=== PATIENT | female | born 1950 | race Two or more races ===

== ENCOUNTER 2023-06-09 18:00 | Inpatient (IN) | payer MEDICAID, OTHER ==
[~2023-06-09] VITALS: Ht 152.4 cm; Wt 49.8 kg
[2023-06-09] MEDS ORDERED: DEXTROSE 50% SYRINGE 50 ML IV ONE (18:51)
[2023-06-09 19:25] LABS: Basophils # (auto) 0 10 ^3/uL (0-0.2); Basophils % (auto) 0.5 % (0.0-2.0); Eosinophils # (auto) 0 10 ^3/uL (0-0.8); Eosinophils % (auto) 0.3 % (0.0-7.0); Hematocrit 39.3 % (36.0-46.0); Hemoglobin 12.6 g/dL (12.2-16.2); Lymphocytes # (auto) 0.7 10 ^3/uL (0.4-5.4); Mean Corpuscular Hemoglobin 28.8 pg (28.0-32.0); Mean Corpuscular Volume 89.8 fL (80.0-100.0); Monocytes # (auto) 0.4 10 ^3/uL (0-1.3); Monocytes % (auto) 7.9 % (0.0-12.0); Neutrophils # (auto) 4.2 10 ^3/uL (1.6-8.6); Neutrophils % (auto) 78.3 % (37.0-80.0); Nucleated Red Blood Cells % 0.1 %; Red Blood Cells 4.38 10^6/uL (4.0-5.20); Red Cell Distribution Width 15.4 % (11.8-14.3); White Blood Cell 5.3 10^3/uL (4.4-10.8)
[2023-06-09] MEDS ORDERED: DEXTROSE (50%) 50ML SYRG IV ONE ×2 (19:30→22:00)
[2023-06-09 19:41] VITALS: PULSE 73; RESP 20; O2SAT 100
[2023-06-09 20:11] LABS: Alanine Aminotransferase 36 U/L (7-40); Albumin 4.2 g/dL (3.2-4.8); Alkaline Phosphatase 97 U/L (46-116); Anion Gap 8.5 (5-15); Aspartate Aminotransferase 72 U/L (13-40); BUN/Creatinine Ratio 19.2 (10.0-20.0); Blood Urea Nitrogen 19 mg/dL (9-23); Calcium 9.1 mg/dL (8.5-10.1); Carbon Dioxide 28.5 mmol/L (20-30); Chloride 104 mmol/L (98-107); Magnesium 1.7 mg/dL (1.6-2.6); Potassium 3.6 mmol/L (3.5-5.1); Sodium 141 mmol/L (136-145)
[2023-06-09 20:12] LABS: Bilirubin, Total 0.7 mg/dL (0.2-1.0); Total Protein 6.4 g/dL (5.7-8.2)
[2023-06-09 20:14] LABS: Lactic Acid w/Reflex 2.1 mmol/L (0.4-2.0)
[2023-06-09 20:31] LABS: Glucose 35 mg/dL (74-106)
[2023-06-09] MEDS ORDERED: HYDROcodone-ACET 5/325MG TAB PO PRN (21:00)
[2023-06-09] MEDS ORDERED: DOCUSATE SOD 100 MG CAP PO PRN (21:00)
[2023-06-09] MEDS ORDERED: IBUPROFEN 600 MG TAB PO PRN (21:00)
[2023-06-09] MEDS ORDERED: DEXTROSE (50%) 50ML SYRG IV PRN (21:00)
[2023-06-09] MEDS ORDERED: ONDANSETRON HCL 4 MG/2 ML VIAL IV PRN (21:00)
[2023-06-09] MEDS ORDERED: ATORVASTATIN 20 MG TAB PO SCH (22:00)
[2023-06-09 22:08] LABS: Urine Bacteria FEW /hpf (None Seen); Urine Blood Negative /uL (Negative); Urine Clarity HAZY (Clear); Urine Color Yellow (Yellow); Urine Protein, UAD TRACE (Negative); Urine Urobilinogen Normal (Negative); Urine WBC 3 /hpf (0 - 5); Urine pH 7.5 (5.0-8.0)
[2023-06-09] MEDS ORDERED: FUROSEMIDE 40 MG/4 ML VIAL IV ONE (22:15)
[2023-06-09] MEDS: SODIUM CHLOR 0.9% PF (SALINE LOCK) 10ML VIAL/SYR IV SCH (22:39)
[2023-06-09] MEDS ORDERED: NITR-87 PO (22:44)
[2023-06-09] MEDS: CARVEDILOL 3.125 MG TAB PO SCH (22:48)
[2023-06-10] MEDS: ACCU-CHEK COMFORT CURVE STRIP VI SCH ×7 (01:01→20:28)
[2023-06-10] MEDS: InsuLIN REG 1unit/0.01ml Soln (100units/ml) SC SCH ×7 (01:07→20:39)
[2023-06-10 03:19] VITALS: PULSE 65; RESP 20; O2SAT 100
[2023-06-10] MEDS ORDERED: NITROGLYCERIN 0.4 MG SL TAB SL PRN (05:30)
[2023-06-10] MEDS ORDERED: MORPHINE SULFATE INJ 2 MG/ml SYRG IV PRN (05:30)
[2023-06-10 05:52] LABS: Basophils # (auto) 0 10 ^3/uL (0-0.2); Basophils % (auto) 0.8 % (0.0-2.0); Eosinophils # (auto) 0 10 ^3/uL (0-0.8); Eosinophils % (auto) 0.3 % (0.0-7.0); Hematocrit 35.1 % (36.0-46.0); Hemoglobin 11.4 g/dL (12.2-16.2); Lymphocytes # (auto) 1.1 10 ^3/uL (0.4-5.4); Lymphocytes % (auto) 26.1 % (10.0-50.0); Mean Corpuscular Hemoglobin 29.1 pg (28.0-32.0); Mean Corpuscular Hgb Conc. 32.6 g/dL (32.0-36.0); Mean Corpuscular Volume 89.2 fL (80.0-100.0); Monocytes # (auto) 0.5 10 ^3/uL (0-1.3); Monocytes % (auto) 12.6 % (0.0-12.0); Neutrophils # (auto) 2.6 10 ^3/uL (1.6-8.6); Neutrophils % (auto) 60.2 % (37.0-80.0); Nucleated Red Blood Cells % 0.1 %; Red Blood Cells 3.94 10^6/uL (4.0-5.20); Red Cell Distribution Width 15.2 % (11.8-14.3); White Blood Cell 4.3 10^3/uL (4.4-10.8)
[2023-06-10 05:59] LABS: Alanine Aminotransferase 24 U/L (7-40); Alkaline Phosphatase 82 U/L (46-116); Anion Gap 6.7 (5-15); BUN/Creatinine Ratio 13.1 (10.0-20.0); Blood Urea Nitrogen 14 mg/dL (9-23); Calcium 8.6 mg/dL (8.7-10.4); Carbon Dioxide 29.3 mmol/L (20-30); Chloride 103 mmol/L (98-107); Glucose 103 mg/dL (74-106); Sodium 139 mmol/L (136-145)
[2023-06-10 06:00] LABS: Albumin 3.6 g/dL (3.2-4.8); Aspartate Aminotransferase 38 U/L (13-40); Bilirubin, Total 0.8 mg/dL (0.2-1.0); Total Protein 5.6 g/dL (5.7-8.2)
[2023-06-10] MEDS: SODIUM CHLOR 0.9% PF (SALINE LOCK) 10ML VIAL/SYR IV SCH ×3 (06:25→22:17)
[2023-06-10 08:00] VITALS: PULSE 83; RESP 18; O2SAT 100
[2023-06-10] MEDS ORDERED: MAGNESIUM SULFATE 1GM/100ML 100 ML IV ONE (09:15)
[2023-06-10] MEDS ORDERED: POTASSIUM EFFERVESENT TAB 25 MEQ PO ONE (09:15)
[2023-06-10 09:50] LABS: Triglycerides 70 mg/dL (< 150)
[2023-06-10 09:51] LABS: Cholesterol 100 mg/dL (< 200); HDL Cholesterol 48 mg/dL (40-59); LDL Cholesterol 43 mg/dL (< 100)
[2023-06-10] MEDS ORDERED: FUROSEMIDE 20 MG/2 ML VIAL IV SCH (10:00)
[2023-06-10] MEDS: FAMOTIDINE (10MG/ML) 2ML VL IV SCH (10:34)
[2023-06-10] MEDS: APIXABAN 5 MG TAB PO SCH ×2 (10:35→22:21)
[2023-06-10] MEDS: ASPirin 81 mg TAB PO SCH (10:35)
[2023-06-10] MEDS: CARVEDILOL 3.125 MG TAB PO SCH ×2 (10:36→22:21)
[2023-06-10] MEDS: FUROSEMIDE 40 MG/4 ML VIAL IV SCH (18:18)
[2023-06-10 20:00] VITALS: PULSE 92; RESP 20; O2SAT 99
[2023-06-10] MEDS: ATORVASTATIN 20 MG TAB PO SCH (22:21)
[2023-06-11] MEDS: ACCU-CHEK COMFORT CURVE STRIP VI SCH ×6 (00:18→22:03)
[2023-06-11] MEDS: InsuLIN REG 1unit/0.01ml Soln (100units/ml) SC SCH ×6 (04:32→20:00)
[2023-06-11 05:24] LABS: Anion Gap 5.8 (5-15); Calcium 9.3 mg/dL (8.7-10.4); Carbon Dioxide 32.2 mmol/L (20-30); Chloride 99 mmol/L (98-107); Potassium 3.9 mmol/L (3.5-5.1); Sodium 137 mmol/L (136-145)
[2023-06-11] MEDS: SODIUM CHLOR 0.9% PF (SALINE LOCK) 10ML VIAL/SYR IV SCH ×3 (05:26→22:04)
[2023-06-11 05:29] LABS: Glucose 122 mg/dL (74-106)
[2023-06-11 05:30] LABS: BUN/Creatinine Ratio 14.8 (10.0-20.0); Blood Urea Nitrogen 18 mg/dL (9-23); Magnesium 1.9 mg/dL (1.6-2.6)
[2023-06-11 05:47] LABS: Basophils # (auto) 0 10 ^3/uL (0-0.2); Basophils % (auto) 0.6 % (0.0-2.0); Eosinophils # (auto) 0.1 10 ^3/uL (0-0.8); Hemoglobin 12.8 g/dL (12.2-16.2); Lymphocytes # (auto) 1.2 10 ^3/uL (0.4-5.4); Mean Corpuscular Hemoglobin 29.1 pg (28.0-32.0); Mean Corpuscular Hgb Conc. 32.8 g/dL (32.0-36.0); Mean Corpuscular Volume 88.6 fL (80.0-100.0); Monocytes # (auto) 0.6 10 ^3/uL (0-1.3); Monocytes % (auto) 11.9 % (0.0-12.0); Neutrophils # (auto) 3.4 10 ^3/uL (1.6-8.6); Neutrophils % (auto) 64.5 % (37.0-80.0); Nucleated Red Blood Cells % 0.2 %; Red Blood Cells 4.41 10^6/uL (4.0-5.20); Red Cell Distribution Width 15.2 % (11.8-14.3); White Blood Cell 5.2 10^3/uL (4.4-10.8)
[2023-06-11] MEDS: FUROSEMIDE 40 MG/4 ML VIAL IV SCH (06:49)
[2023-06-11 10:00] VITALS: BP 149/53; PULSE 87; RESP 20; TEMP 98.3; O2SAT 95
[2023-06-11] MEDS: cefTRIAXone 1GM/50ML D5W 50 ML IV SCH (10:34)
[2023-06-11] MEDS: FAMOTIDINE (10MG/ML) 2ML VL IV SCH (10:36)
[2023-06-11] MEDS: APIXABAN 5 MG TAB PO SCH ×2 (10:36→21:58)
[2023-06-11] MEDS: ASPirin 81 mg TAB PO SCH (10:36)
[2023-06-11] MEDS: CARVEDILOL 3.125 MG TAB PO SCH ×2 (10:36→22:00)
[2023-06-11 10:56] VITALS: PULSE 87; RESP 20; O2SAT 95
[2023-06-11 13:00] VITALS: BP 110/74; PULSE 86; RESP 20; TEMP 98.2; O2SAT 98
[2023-06-11 16:25] VITALS: BP 108/72; PULSE 85; RESP 16; TEMP 97.5; O2SAT 98
[2023-06-11 20:00] VITALS: PULSE 72; PULSE 86; RESP 16; O2SAT 98
[2023-06-11] MEDS: ATORVASTATIN 20 MG TAB PO SCH (21:58)
[2023-06-11 22:00] VITALS: BP 108/48; PULSE 72; RESP 16; TEMP 98.2; O2SAT 98
[2023-06-12] VITALS (7 sets, daily range): BP systolic 100–128; BP diastolic 51–70; PULSE 49–88; RESP 16–18; TEMP 36.6; O2SAT 97–100
[2023-06-12] MEDS: ACCU-CHEK COMFORT CURVE STRIP VI SCH ×5 (04:00→16:00)
[2023-06-12] MEDS: InsuLIN REG 1unit/0.01ml Soln (100units/ml) SC SCH ×5 (04:00→16:00)
[2023-06-12] MEDS: SODIUM CHLOR 0.9% PF (SALINE LOCK) 10ML VIAL/SYR IV SCH ×2 (05:07→14:00)
[2023-06-12 05:17] LABS: Chloride 100 mmol/L (98-107); Potassium 4.3 mmol/L (3.5-5.1); Sodium 136 mmol/L (136-145)
[2023-06-12 05:18] LABS: Anion Gap 4.7 (5-15); Calcium 9.4 mg/dL (8.7-10.4); Carbon Dioxide 31.3 mmol/L (20-30)
[2023-06-12 05:23] LABS: Glucose 95 mg/dL (74-106)
[2023-06-12 05:27] LABS: Blood Urea Nitrogen 30 mg/dL (9-23)
[2023-06-12 05:29] LABS: Basophils # (auto) 0 10 ^3/uL (0-0.2); Basophils % (auto) 0.8 % (0.0-2.0); Eosinophils # (auto) 0.1 10 ^3/uL (0-0.8); Eosinophils % (auto) 0.9 % (0.0-7.0); Hematocrit 39.1 % (36.0-46.0); Hemoglobin 12.9 g/dL (12.2-16.2); Lymphocytes # (auto) 1.4 10 ^3/uL (0.4-5.4); Lymphocytes % (auto) 23.7 % (10.0-50.0); Mean Corpuscular Hemoglobin 29.3 pg (28.0-32.0); Mean Corpuscular Hgb Conc. 32.9 g/dL (32.0-36.0); Monocytes # (auto) 0.8 10 ^3/uL (0-1.3); Monocytes % (auto) 13.9 % (0.0-12.0); Neutrophils # (auto) 3.6 10 ^3/uL (1.6-8.6); Neutrophils % (auto) 60.7 % (37.0-80.0); Nucleated Red Blood Cells % 0.1 %; Red Blood Cells 4.39 10^6/uL (4.0-5.20); White Blood Cell 5.9 10^3/uL (4.4-10.8)
[2023-06-12] MEDS: FAMOTIDINE (10MG/ML) 2ML VL IV SCH (09:12)
[2023-06-12] MEDS: cefTRIAXone 1GM/50ML D5W 50 ML IV SCH (09:43)
[2023-06-12] MEDS: ASPirin 81 mg TAB PO SCH (09:49)
[2023-06-12] MEDS: CARVEDILOL 3.125 MG TAB PO SCH (09:49)
[2023-06-12] MEDS: APIXABAN 5 MG TAB PO SCH (09:54)
[2023-06-12] MEDS ORDERED: FUROSEMIDE 40 MG TAB PO SCH (10:00)
[2023-06-12] MEDS ORDERED: CIPR250T3 PO ×3 (13:16→15:31)
== END 2023-06-12 17:30 | disposition home or self-care (01) | DRG 194 ==
LOC: EDBD 18:00 → ER 18:00 → TELE 06-10 05:28 → TELE-CENTR 06-11 09:44
PROVIDERS: ADMIT Nurse Practitioner Family; ATTEND Internal Medicine
DX: I11.0 Hypertensive heart disease with heart failure (principal); E11.649 Type 2 diabetes mellitus with hypoglycemia without coma; I95.9 Hypotension, unspecified; Z79.01 Long term (current) use of anticoagulants; I48.20 Chronic atrial fibrillation, unspecified; I50.43 Acute on chronic combined systolic (congestive) and diastolic (congestive) heart failure; N39.0 Urinary tract infection, site not specified; E78.5 Hyperlipidemia, unspecified; E87.6 Hypokalemia; Z88.0 Allergy status to penicillin; Z79.84 Long term (current) use of oral hypoglycemic drugs
CPT/HCPCS: 36415; 71045; 80048; 80053; 80061; 81001; 82962; 83036; 83605; 83735; 83880; 84443; 84484; 85025; 85379; 93005; 93306; 96374; 96375; 96376; 99291; G0378; J0696; J1815; J3490

== ENCOUNTER 2023-10-29 14:29 | Inpatient (IN) | payer MEDICAID ==
[~2023-10-29] VITALS: Ht 152.4 cm; Wt 42.5 kg
[~2023-10-29 14:29] MED LIST: CIPR250T3 PO
[2023-10-29] MEDS ORDERED: HYDROcodone-ACET 5/325MG TAB PO ONE (15:00)
[2023-10-29 15:49] LABS: Basophils # (auto) 0 10 ^3/uL (0-0.2); Basophils % (auto) 0.3 % (0.0-2.0); Eosinophils # (auto) 0 10 ^3/uL (0-0.8); Eosinophils % (auto) 0.4 % (0.0-7.0); Hematocrit 41.3 % (36.0-46.0); Hemoglobin 13.5 g/dL (12.2-16.2); Lymphocytes # (auto) 0.9 10 ^3/uL (0.4-5.4); Lymphocytes % (auto) 21.6 % (10.0-50.0); Mean Corpuscular Hemoglobin 28.8 pg (28.0-32.0); Mean Corpuscular Hgb Conc. 32.8 g/dL (32.0-36.0); Mean Corpuscular Volume 87.9 fL (80.0-100.0); Monocytes # (auto) 0.4 10 ^3/uL (0-1.3); Monocytes % (auto) 9.3 % (0.0-12.0); Neutrophils % (auto) 68.4 % (37.0-80.0); Nucleated Red Blood Cells % 0.2 %; Red Blood Cells 4.69 10^6/uL (4.0-5.20); Red Cell Distribution Width 15.5 % (11.8-14.3); White Blood Cell 4.4 10^3/uL (4.4-10.8)
[2023-10-29 16:02] LABS: Alanine Aminotransferase 24 U/L (7-40); Albumin 4.5 g/dL (3.2-4.8); Alkaline Phosphatase 117 U/L (46-116); Anion Gap 5 (5-15); Aspartate Aminotransferase 41 U/L (13-40); BUN/Creatinine Ratio 19.1 (10.0-20.0); Blood Urea Nitrogen 18 mg/dL (9-23); Calcium 9.6 mg/dL (8.7-10.4); Carbon Dioxide 28 mmol/L (20-30); Chloride 101 mmol/L (98-107); Glucose 113 mg/dL (74-106); Potassium 4.6 mmol/L (3.5-5.1); Sodium 134 mmol/L (136-145)
[2023-10-29 16:03] LABS: Bilirubin, Total 0.5 mg/dL (0.2-1.0); Total Protein 7.2 g/dL (5.7-8.2)
[2023-10-29 20:30] VITALS: PULSE 65; RESP 12; O2SAT 96
[2023-10-29] MEDS: CLINDAMYCIN 300MG IV 50 ML IV SCH (20:53)
[2023-10-29] MEDS: CARVEDILOL 12.5 MG TAB PO SCH (21:50)
[2023-10-29] MEDS: SACUBITRIL-VALSARTAN 24mg/26mg TAB PO SCH (21:50)
[2023-10-29] MEDS: ATORVASTATIN 20 MG TAB PO SCH (21:51)
[2023-10-29 23:43] VITALS: BP 115/72; PULSE 51; RESP 18; TEMP 97.7; O2SAT 100
[2023-10-30] MEDS ORDERED: PRAV20TA3 PO (00:27)
[2023-10-30] MEDS ORDERED: CAR125T OR (00:27)
[2023-10-30] MEDS ORDERED: LOSA50TA46 PO (00:27)
[2023-10-30] MEDS ORDERED: METF-370 PO (00:27)
[2023-10-30] MEDS ORDERED: GABA-1308 PO (00:27)
[2023-10-30] MEDS: CLINDAMYCIN 300MG IV 50 ML IV SCH ×2 (01:16→05:00)
[2023-10-30 05:15] VITALS: BP 99/64; PULSE 91; RESP 18; TEMP 98.2; O2SAT 96
[2023-10-30] MEDS: FUROSEMIDE 20 MG TAB PO SCH ×2 (06:00→18:47)
[2023-10-30 06:41] LABS: Basophils # (auto) 0 10 ^3/uL (0-0.2); Basophils % (auto) 0.3 % (0.0-2.0); Eosinophils # (auto) 0 10 ^3/uL (0-0.8); Eosinophils % (auto) 1.1 % (0.0-7.0); Hematocrit 39.8 % (36.0-46.0); Lymphocytes % (auto) 32.1 % (10.0-50.0); Mean Corpuscular Hemoglobin 28.5 pg (28.0-32.0); Mean Corpuscular Hgb Conc. 32.6 g/dL (32.0-36.0); Mean Corpuscular Volume 87.6 fL (80.0-100.0); Monocytes # (auto) 0.4 10 ^3/uL (0-1.3); Monocytes % (auto) 13.9 % (0.0-12.0); Neutrophils # (auto) 1.6 10 ^3/uL (1.6-8.6); Neutrophils % (auto) 52.6 % (37.0-80.0); Nucleated Red Blood Cells % 0.3 %; Red Blood Cells 4.54 10^6/uL (4.0-5.20); Red Cell Distribution Width 15.1 % (11.8-14.3); White Blood Cell 3.1 10^3/uL (4.4-10.8)
[2023-10-30 07:09] LABS: Alanine Aminotransferase 18 U/L (7-40); Albumin 3.7 g/dL (3.2-4.8); Alkaline Phosphatase 98 U/L (46-116); Anion Gap 7 (5-15); Aspartate Aminotransferase 35 U/L (13-40); BUN/Creatinine Ratio 14.4 (10.0-20.0); Bilirubin, Total 0.4 mg/dL (0.2-1.0); Blood Urea Nitrogen 14 mg/dL (9-23); Calcium 9.2 mg/dL (8.5-10.1); Carbon Dioxide 25 mmol/L (20-30); Chloride 103 mmol/L (98-107); Cholesterol 119 mg/dL (< 200); Glucose 88 mg/dL (74-106); HDL Cholesterol 37 mg/dL (40-59); LDL Cholesterol 69 mg/dL (< 100); Potassium 3.8 mmol/L (3.5-5.1); Sodium 135 mmol/L (136-145); Total Protein 6.2 g/dL (5.7-8.2); Triglycerides 89 mg/dL (< 150)
[2023-10-30] MEDS: SACUBITRIL-VALSARTAN 24mg/26mg TAB PO SCH ×2 (09:33→21:32)
[2023-10-30] MEDS: EMPAGLIFLOZIN 10 MG TAB PO SCH (09:33)
[2023-10-30] MEDS: CARVEDILOL 12.5 MG TAB PO SCH ×2 (09:34→21:33)
[2023-10-30] MEDS ORDERED: LISINOPRIL 10 MG TAB PO SCH (10:00)
[2023-10-30 10:54] VITALS: BP 108/62; PULSE 54; RESP 15; TEMP 97.9; O2SAT 100
[2023-10-30] MEDS ORDERED: VANCOMYCIN PER PHARMACY 0 MG IV SCH (11:00)
[2023-10-30] MEDS ORDERED: levoFLOXacin 500MG 100 ML IV ONE (11:00)
[2023-10-30] MEDS ORDERED: VANCOMYCIN 1GM/200ML 200 ML IV ONE ×2 (11:00→14:45)
[2023-10-30] MEDS ORDERED: cefTRIAXone 1GM/50ML D5W 50 ML IV SCH ×2 (12:23→14:00)
[2023-10-30] MEDS: cefTRIAXone 1GM/50ML D5W 50 ML IV SCH (14:00)
[2023-10-30 17:17] VITALS: BP 111/43; PULSE 77; RESP 17; TEMP 98.4; O2SAT 100
[2023-10-30 18:58] LABS: Chloride 102 mmol/L (98-107); Potassium 4.6 mmol/L (3.5-5.1); Sodium 136 mmol/L (136-145)
[2023-10-30 18:59] LABS: Anion Gap 7 (5-15); Calcium 9.4 mg/dL (8.5-10.1); Carbon Dioxide 27 mmol/L (20-30)
[2023-10-30 19:04] LABS: BUN/Creatinine Ratio 22.9 (10.0-20.0); Blood Urea Nitrogen 24 mg/dL (9-23); Glucose 109 mg/dL (74-106)
[2023-10-30] MEDS: ATORVASTATIN 20 MG TAB PO SCH (21:29)
[2023-10-30 22:00] VITALS: BP 101/55; PULSE 74; RESP 20; TEMP 98.5; O2SAT 100
[2023-10-31 05:00] VITALS: BP_SYST 104; BP_SYST 99; BP_DIAS 55; BP_DIAS 76; PULSE 68; PULSE 99; RESP 20; TEMP 97.8; TEMP 98.2; O2SAT 97; O2SAT 99
[2023-10-31] MEDS: FUROSEMIDE 20 MG TAB PO SCH ×2 (07:00→18:00)
[2023-10-31 08:55] VITALS: BP 97/63; PULSE 64; RESP 18; TEMP 97.6; O2SAT 100
[2023-10-31 08:57] LABS: Hepatitis B Surface Antigen Negative (Negative)
[2023-10-31 09:19] LABS: Hepatitis C Antibody Negative (Negative)
[2023-10-31] MEDS ORDERED: levoFLOXacin 500MG 100 ML IV SCH (10:00)
[2023-10-31 10:47] LABS: INR 1.1 (0.9-1.15); Partial Thromboplastin Time 30.8 SEC (24.5-34.5); Prothrombin Time 11.5 sec (9.3-11.8)
[2023-10-31] MEDS: cefTRIAXone 1GM/50ML D5W 50 ML IV SCH (10:56)
[2023-10-31] MEDS: CARVEDILOL 12.5 MG TAB PO SCH ×2 (12:15→22:00)
[2023-10-31] MEDS: SACUBITRIL-VALSARTAN 24mg/26mg TAB PO SCH ×2 (12:15→22:00)
[2023-10-31] MEDS: EMPAGLIFLOZIN 10 MG TAB PO SCH (12:19)
[2023-10-31 12:55] VITALS: BP 97/56; PULSE 72; RESP 16; TEMP 97.8; O2SAT 100
[2023-10-31] MEDS ORDERED: VANCOMYCIN 750mg/150ml 250 ML IV SCH (16:00)
[2023-10-31 16:40] VITALS: BP 89/54; PULSE 63; RESP 16; TEMP 97.5; O2SAT 99
[2023-10-31] MEDS: VANCOMYCIN 750mg/150ml 150 ML IV SCH (18:26)
[2023-10-31 20:30] VITALS: PULSE 74; RESP 16; O2SAT 100
[2023-10-31 22:00] VITALS: BP 105/53; PULSE 74; RESP 16; TEMP 98.2; O2SAT 100
[2023-10-31] MEDS: ATORVASTATIN 20 MG TAB PO SCH (22:00)
[2023-11-01] VITALS (7 sets, daily range): BP systolic 89–98; BP diastolic 44–47; PULSE 53–76; RESP 15–18; TEMP 97.5–98.1; O2SAT 98–100
[2023-11-01] MEDS: FUROSEMIDE 20 MG TAB PO SCH (05:54)
[2023-11-01] MEDS: EMPAGLIFLOZIN 10 MG TAB PO SCH (09:54)
[2023-11-01] MEDS: SACUBITRIL-VALSARTAN 24mg/26mg TAB PO SCH ×2 (09:54→21:29)
[2023-11-01] MEDS: CARVEDILOL 12.5 MG TAB PO SCH ×2 (09:55→21:29)
[2023-11-01] MEDS: cefTRIAXone 1GM/50ML D5W 50 ML IV SCH (09:55)
[2023-11-01] MEDS ORDERED: ACETAMINOPHEN 325 MG TAB PO PRN (14:00)
[2023-11-01] MEDS ORDERED: PANTOPRAZOLE 40 MG TAB PO ONE (14:00)
[2023-11-01] MEDS ORDERED: HYDROcodone-ACET 5/325MG TAB PO PRN (14:00)
[2023-11-01] MEDS ORDERED: ONDANSETRON HCL 4 MG/2 ML VIAL IV PRN (14:00)
[2023-11-01] MEDS ORDERED: DEXTROSE (50%) 50ML SYRG IV PRN (14:00)
[2023-11-01] MEDS: VANCOMYCIN 750mg/150ml 150 ML IV SCH (15:39)
[2023-11-01] MEDS ORDERED: LIDOCAINE 1% (LOCAL ANESTH.) PF 5ml SDV ID ONE (16:45)
[2023-11-01] MEDS: InsuLIN REG 1unit/0.01ml Soln (100units/ml) SC SCH ×2 (17:00→21:28)
[2023-11-01] MEDS: ACCU-CHEK COMFORT CURVE STRIP VI SCH ×2 (17:22→21:29)
[2023-11-01] MEDS: SODIUM CHLOR 0.9% PF (SALINE LOCK) 10ML VIAL/SYR IV SCH (21:23)
[2023-11-01] MEDS: ATORVASTATIN 20 MG TAB PO SCH (21:28)
[2023-11-02 05:00] VITALS: BP 95/58; PULSE 67; RESP 15; TEMP 97.8; O2SAT 100
[2023-11-02] MEDS: ACCU-CHEK COMFORT CURVE STRIP VI SCH ×4 (06:23→21:20)
[2023-11-02] MEDS: InsuLIN REG 1unit/0.01ml Soln (100units/ml) SC SCH ×4 (06:23→21:26)
[2023-11-02 08:00] VITALS: PULSE 74; RESP 18; O2SAT 98
[2023-11-02 09:00] VITALS: BP_SYST 109; BP_SYST 88; BP_DIAS 35; BP_DIAS 59; PULSE 61; PULSE 72; RESP 18; TEMP 97.8; TEMP 98; O2SAT 98; O2SAT 99
[2023-11-02] MEDS: SACUBITRIL-VALSARTAN 24mg/26mg TAB PO SCH ×2 (09:06→21:20)
[2023-11-02] MEDS: PANTOPRAZOLE 40 MG TAB PO SCH (09:06)
[2023-11-02] MEDS: EMPAGLIFLOZIN 10 MG TAB PO SCH (09:07)
[2023-11-02] MEDS: FUROSEMIDE 20 MG TAB PO SCH (09:07)
[2023-11-02] MEDS: CARVEDILOL 12.5 MG TAB PO SCH ×2 (09:08→21:27)
[2023-11-02] MEDS: SODIUM CHLOR 0.9% PF (SALINE LOCK) 10ML VIAL/SYR IV SCH ×2 (09:09→21:29)
[2023-11-02] MEDS: cefTRIAXone 1GM/50ML D5W 50 ML IV SCH (09:09)
[2023-11-02 13:00] VITALS: BP 88/35; PULSE 61; RESP 18; TEMP 98; O2SAT 99
[2023-11-02] MEDS ORDERED: ENOXAPARIN SOD 40 MG/0.4 ML SYRINGE SC ONE (15:45)
[2023-11-02 17:13] VITALS: BP 133/85; PULSE 115; RESP 18; TEMP 98.3; O2SAT 93
[2023-11-02] MEDS: VANCOMYCIN 750mg/150ml 150 ML IV SCH (17:50)
[2023-11-02] MEDS: ATORVASTATIN 20 MG TAB PO SCH (21:20)
[2023-11-02 22:00] VITALS: BP 100/39; PULSE 68; RESP 18; TEMP 98; O2SAT 100
[2023-11-03 05:00] VITALS: BP 93/38; PULSE 51; RESP 18; TEMP 97.6; O2SAT 99
[2023-11-03] MEDS ORDERED: ENOXAPARIN SOD 40 MG/0.4 ML SYRINGE SC SCH (06:00)
[2023-11-03] MEDS: InsuLIN REG 1unit/0.01ml Soln (100units/ml) SC SCH ×4 (06:48→22:01)
[2023-11-03] MEDS: ACCU-CHEK COMFORT CURVE STRIP VI SCH ×4 (06:48→21:53)
[2023-11-03 08:00] VITALS: BP 98/64; PULSE 63; RESP 16; TEMP 97.7; O2SAT 100
[2023-11-03 08:10] VITALS: BP 98/64; PULSE 63; RESP 16; TEMP 97.7; O2SAT 100
[2023-11-03] MEDS: FUROSEMIDE 20 MG TAB PO SCH (10:00)
[2023-11-03] MEDS: SACUBITRIL-VALSARTAN 24mg/26mg TAB PO SCH ×2 (10:00→21:53)
[2023-11-03] MEDS: SODIUM CHLOR 0.9% PF (SALINE LOCK) 10ML VIAL/SYR IV SCH ×2 (10:12→21:57)
[2023-11-03] MEDS: cefTRIAXone 1GM/50ML D5W 50 ML IV SCH (10:12)
[2023-11-03] MEDS: EMPAGLIFLOZIN 10 MG TAB PO SCH (10:15)
[2023-11-03] MEDS: PANTOPRAZOLE 40 MG TAB PO SCH (10:15)
[2023-11-03 12:00] VITALS: BP 99/55; PULSE 65; RESP 16; TEMP 97.4; O2SAT 95
[2023-11-03 16:00] VITALS: BP 105/53; PULSE 52; RESP 16; TEMP 97.8; O2SAT 100
[2023-11-03] MEDS: APIXABAN 5 MG TAB PO SCH (21:53)
[2023-11-03] MEDS: ATORVASTATIN 20 MG TAB PO SCH (21:53)
[2023-11-03] MEDS: CARVEDILOL 3.125 MG TAB PO SCH (21:56)
[2023-11-03 22:00] VITALS: BP 95/60; PULSE 67; RESP 16; TEMP 98.1; O2SAT 97
[2023-11-04 05:00] VITALS: BP 109/53; PULSE 58; RESP 16; TEMP 97.6; O2SAT 100
[2023-11-04] MEDS: ACCU-CHEK COMFORT CURVE STRIP VI SCH ×3 (06:08→16:55)
[2023-11-04] MEDS: InsuLIN REG 1unit/0.01ml Soln (100units/ml) SC SCH ×3 (06:08→17:32)
[2023-11-04 06:55] LABS: Basophils # (auto) 0 10 ^3/uL (0-0.2); Basophils % (auto) 0.5 % (0.0-2.0); Eosinophils # (auto) 0 10 ^3/uL (0-0.8); Eosinophils % (auto) 1.2 % (0.0-7.0); Hematocrit 41.2 % (36.0-46.0); Hemoglobin 13.6 g/dL (12.2-16.2); Lymphocytes # (auto) 1.1 10 ^3/uL (0.4-5.4); Lymphocytes % (auto) 31.1 % (10.0-50.0); Mean Corpuscular Hemoglobin 29.1 pg (28.0-32.0); Mean Corpuscular Hgb Conc. 33.1 g/dL (32.0-36.0); Mean Corpuscular Volume 87.7 fL (80.0-100.0); Monocytes # (auto) 0.4 10 ^3/uL (0-1.3); Monocytes % (auto) 12.7 % (0.0-12.0); Neutrophils # (auto) 1.9 10 ^3/uL (1.6-8.6); Neutrophils % (auto) 54.5 % (37.0-80.0); Nucleated Red Blood Cells % 0.1 %; Red Cell Distribution Width 15.4 % (11.8-14.3); White Blood Cell 3.5 10^3/uL (4.4-10.8)
[2023-11-04 07:01] LABS: Anion Gap 6 (5-15); Carbon Dioxide 27 mmol/L (20-30); Chloride 103 mmol/L (98-107); Sodium 136 mmol/L (136-145)
[2023-11-04 07:02] LABS: Calcium 9.2 mg/dL (8.5-10.1)
[2023-11-04 07:07] LABS: Blood Urea Nitrogen 21 mg/dL (9-23); Glucose 85 mg/dL (74-106)
[2023-11-04 08:00] VITALS: BP 97/58; PULSE 76; RESP 16; TEMP 97.5; O2SAT 100
[2023-11-04 08:08] LABS: BUN/Creatinine Ratio 23.3 (10.0-20.0)
[2023-11-04] MEDS: APIXABAN 5 MG TAB PO SCH (09:14)
[2023-11-04] MEDS: cefTRIAXone 1GM/50ML D5W 50 ML IV SCH (09:14)
[2023-11-04] MEDS: PANTOPRAZOLE 40 MG TAB PO SCH (09:14)
[2023-11-04] MEDS: SACUBITRIL-VALSARTAN 24mg/26mg TAB PO SCH (09:14)
[2023-11-04] MEDS: CARVEDILOL 3.125 MG TAB PO SCH (09:15)
[2023-11-04] MEDS: EMPAGLIFLOZIN 10 MG TAB PO SCH (09:15)
[2023-11-04] MEDS: SODIUM CHLOR 0.9% PF (SALINE LOCK) 10ML VIAL/SYR IV SCH (09:15)
[2023-11-04] MEDS ORDERED: EMPA1TAB PO (09:48)
[2023-11-04] MEDS ORDERED: SACU1TAB PO (09:48)
[2023-11-04] MEDS ORDERED: APIX5TAB PO (09:48)
[2023-11-04] MEDS ORDERED: FUR20T PO (09:48)
[2023-11-04] MEDS ORDERED: DAKINS QUARTER STR 0.125% (NaHypochlorite) 473 ML TOPICAL SOL TOP SCH (10:00)
[2023-11-04] MEDS ORDERED: FUROSEMIDE 20 MG TAB PO SCH (10:00)
[2023-11-04 12:00] VITALS: BP 128/65; PULSE 61; RESP 16; TEMP 98.1; O2SAT 97
[2023-11-04 16:00] VITALS: BP 102/63; PULSE 55; RESP 16; TEMP 97.9; O2SAT 97
[2023-11-04 20:00] VITALS: RESP 16; O2SAT 100
== END 2023-11-04 20:44 | disposition home health service (06) | DRG 383 ==
LOC: ER 14:29 → OVERFLOW 20:10 → EAST 22:48
PROVIDERS: ADMIT Hospitalist; ATTEND Internal Medicine Geriatric Medicine
PROC: 02HV33Z Insertion of Infusion Device into Superior Vena Cava, Percutaneous Approach (ICD-10-PCS; principal; 2023-11-01)
PROC: B548ZZA Ultrasonography of Superior Vena Cava, Guidance (ICD-10-PCS; 2023-11-01)
DX: L03.115 Cellulitis of right lower limb (principal); I50.43 Acute on chronic combined systolic (congestive) and diastolic (congestive) heart failure; E11.628 Type 2 diabetes mellitus with other skin complications; S91.301A Unspecified open wound, right foot, initial encounter; E11.51 Type 2 diabetes mellitus with diabetic peripheral angiopathy without gangrene; S91.302A Unspecified open wound, left foot, initial encounter; I11.0 Hypertensive heart disease with heart failure; L03.116 Cellulitis of left lower limb; E78.5 Hyperlipidemia, unspecified; E66.9 Obesity, unspecified; I48.91 Unspecified atrial fibrillation; S90.822A Blister (nonthermal), left foot, initial encounter; Z88.0 Allergy status to penicillin; Z82.49 Family history of ischemic heart disease and other diseases of the circulatory system; Z68.1 Body mass index [BMI] 19.9 or less, adult
CPT/HCPCS: 36415; 36569; 70551; 71045; 73700; 73718; 78315; 80048; 80053; 80061; 80202; 82565; 82962; 83605; 83880; 84484; 85025; 85610; 85730; 86803; 87340; 93005; 93306; 93925; G0378; J1815; J3490

== ENCOUNTER → 2024-02-27 | Outpatient (CLI) | payer MEDICAID ==
[~2024-02-27] VITALS: Ht 152.4 cm; Wt 39.5 kg
[~2024-02-27] MED LIST changes: +ADENOSINE 33 MG in GIVE UN-DILUTED 0 ML IV ONE; +ADENOSINE 90 MG/30 ML INJ IV ONE; +APIX5TAB PO; +CARV-216 PO; -CIPR250T3 PO; +EMPA1TAB PO; +ERGO1CAP12 PO; +FUR20T PO; +GABA-1308 PO; +GLIP5TAB21 PO; +LEVO500T91 PO; +LOSA-534 PO; +METF-370 PO; +PRAV20TA3 PO; +SACU1TAB PO; +[UNRECOGNIZED DRUG - CODE] EX
== END | disposition home or self-care (01) ==
LOC: Rad HDHVI 13:10
PROVIDERS: ATTEND Internal Medicine Cardiovascular Disease
DX: I11.0 Hypertensive heart disease with heart failure (principal); I50.33 Acute on chronic diastolic (congestive) heart failure; I48.91 Unspecified atrial fibrillation; E11.9 Type 2 diabetes mellitus without complications; E78.00 Pure hypercholesterolemia, unspecified; Z82.49 Family history of ischemic heart disease and other diseases of the circulatory system
CPT/HCPCS: 78452; 93005; 96374; 96375; A9500; J0153

== ENCOUNTER 2025-04-29 22:01 | Inpatient (IN) | payer MEDICARE, MEDICAID ==
[~2025-04-29] VITALS: Ht 137.2 cm; Wt 46.4 kg
[~2025-04-29 22:01] MED LIST changes: -ADENOSINE 33 MG in GIVE UN-DILUTED 0 ML IV ONE; -ADENOSINE 90 MG/30 ML INJ IV ONE; -FUR20T PO; +FURO20TA4 PO
--- NOTE | 2025-04-29 22:48 | ED.PDOC ---
History of Present Illness HPI Comments 74-year-old female presents with 4 week history of back pain. Patient denies any recent heavy lifting or trauma. Suspicion on her being the cause of her back pain. Patient also reports on being diagnosed with UTI and being placed on nitrofurantoin for over the past 2 weeks. Denies any fever, chills, headache, or further associated symptoms. Significant history for AFib, CHF, DM type 2, HLD, and HTN. Chief Complaint: Back Pain Time Seen by MD: 22:30 Reviewed Notes: Nurses Notes, Medications, Allergies Allergies: Coded Allergies: Penicillins (Verified Allergy, Unknown, 06/09/23) Home Meds Active Scripts Povidone Iodine (EQ POVIDONE-IODINE) 10 % Beatriz, 10 % EX BID, #120 ML 5 Refills apply to heal and foot twice per day. Prov:MICHELLE LAN MD 01/13/24 Levofloxacin Hemihydrate (LEVAQUIN 500 MG) 500 Mg Tab, 1 TAB PO DAILY, #7 TAB Prov:MICHELLE LAN MD 01/13/24 Sacubitril-Valsartan (Entresto 24-26 mg) 1 Tab Tab, 1 TAB PO BID for 30 Days, #60 TAB 5 Refills Prov:SHARLA RAMIREZ MD 11/04/23 Furosemide (Furosemide) 20 Mg Tab, 20 MG PO DAILY for 30 Days, #30 TAB 5 Refills Prov:SHARLA RAMIREZ MD 11/04/23 Empagliflozin (Jardiance) 10 Mg Tab, 10 MG PO DAILY for 30 Days, #30 TAB 5 Refills Prov:SHARLA RAMIREZ MD 11/04/23 Apixaban Base (ELIQUIS) 5 Mg Tab, 5 MG PO BID for 30 Days, #60 TAB 5 Refills Prov:SHARLA RAMIREZ MD 11/04/23 Reported Medications Ergocalciferol (Vitamin D) 50,000 Unit Cap, 1 CAP PO QWEEKLY 01/12/24 Losartan Potassium (Losartan Potassium) 50 Mg Tab, 1 TAB PO DAILY 01/12/24 Glipizide (Glipizide) 5 Mg Tab, 1 TAB PO DAILY 01/11/24 Gabapentin (Gabapentin) 100 Mg Cap, 1 CAP PO BID 10/30/23 Pravastatin Sodium (PRAVACHOL TABLET) 20 Mg Tb, 40 MG PO DAILY 10/30/23 Metformin Hydrochloride (Metformin Hcl) 500 Mg Tab, 1 TAB PO BID, #60 TAB 3 Refills 10/30/23 Carvedilol (COREG) 12.5 Mg Tab, 1 TAB PO BID 10/30/23 Information Source: Patient Mode of Arrival: Ambulatory Severity: Moderate Timing: Hours Duration: Since onset Prehospital treatment: None Past Medical History PAST MEDICAL HISTORY: AFIB, CHF, DM (Type II), High Lipids, HTN Surgical History: Denies all surgeries Social History Smoker: Non-Smoker Alcohol: Denies ETOH Use Drugs: Denies Drug Use Lives In: Home All Other Systems: Reviewed and Negative (As per HPI) Physical Exam General Appearance: No Apparent Distress, Normal HEENT: Normal ENT Inspection, Pharynx Normal, TMs Normal Neck: Full Range of Motion, Non-Tender, Normal, Normal Inspection Respiratory: Chest Non-Tender, Lungs Clear, No Accessory Muscle Use, No Respiratory Distress, Normal Breath Sounds Cardiovascular: No Edema, No JVD, No Murmur, No Gallop, Normal Peripheral Pulses, Regular Rate/Rhythm Breast Exam: Deferred Gastrointestinal: No Organomegaly, No Pulsatile Mass, Normal Bowel Sounds, Soft, Tenderness (Bilateral CVA tenderness) Genitalia: Deferred Pelvic: Deferred Rectal: Deferred Extremities: No calf tenderness, Normal capillary refill, Normal inspection, Normal range of motion, Non-tender, No pedal edema Musculoskeletal : Location: Bilateral Extremity Location: Other (CVA) Apperance: Normal, Tenderness Neurologic: Alert, industrial automation engineer II-XII nml as Tested, No Motor Deficits, Normal Affect, Normal Mood, No Sensory Deficits Cerebellar Function: Normal Reflexes: Normal Skin: Dry, Normal Color, Warm Lymphatic: No Adenopathy Was a procedure done? Was a procedure done?: No EKG EKG : Pulse Rate (adult): 113 [place]: Normal Cardiac Rhythm: Afib Block: None Hypertrophy: None ST: Normal Comments prolong QT intervals QTC of 537 no STEMI Differential Dx Considerations may include: Musculoskeletal pain, sprain, fracture, contusion, degenerative disc disease, among others X-Ray, Labs, Meds, VS Vital Signs Date Time Temp Pulse Resp B/P (MAP) Pulse Ox O2 Delivery O2 Flow Rate FiO2 04/29/25 22:48 113 04/29/25 22:38 113 04/29/25 22:20 98.5 94 14 152/73 (99) 99 98.5 Lab Test 04/30/25 00:26 04/29/25 22:47 Range/Units Lactic Acid Level 1.7 3.3 *H 0.4-2.0 mmol/L White Blood Count 7.5 4.4-10.8 10^3/uL Red Blood Count 4.51 4.0-5.20 10^6/uL Hemoglobin 12.7 12.2-16.2 g/dL Hematocrit 38.4 36.0-46.0 % Mean Corpuscular Volume 85.2 80.0-100.0 fL Mean Corpuscular Hemoglobin 28.2 28.0-32.0 pg Mean Corpuscular Hemoglobin Concent 33.1 32.0-36.0 g/dL Red Cell Distribution Width 15.8 H 11.8-14.3 % Platelet Count 259 140-450 10^3/uL Mean Platelet Volume 8.1 6.9-10.8 fL Neutrophils (%) (Auto) 80.5 H 37.0-80.0 % Lymphocytes (%) (Auto) 11.5 10.0-50.0 % Monocytes (%) (Auto) 7.7 0.0-12.0 % Eosinophils (%) (Auto) 0.1 0.0-7.0 % Basophils (%) (Auto) 0.2 0.0-2.0 % Neutrophils # (Auto) 6.0 1.6-8.6 10 ^3/uL Lymphocytes # (Auto) 0.9 0.4-5.4 10 ^3/uL Monocytes # (Auto) 0.6 0-1.3 10 ^3/uL Eosinophils # (Auto) 0 0-0.8 10 ^3/uL Basophils # (Auto) 0 0-0.2 10 ^3/uL Nucleated Red Blood Cells 0.1 % Sodium Level 138 136-145 mmol/L Potassium Level 3.6 3.5-5.1 mmol/L Chloride Level 103 98-107 mmol/L Carbon Dioxide Level 23 20-31 mmol/L Anion Gap 12 5-15 Blood Urea Nitrogen 29 H 9-23 mg/dL Creatinine 0.89 0.550-1.02 mg/dL Glomerular Filtration Rate Calc 68 >90 mL/min BUN/Creatinine Ratio 32.6 H 10.0-20.0 Serum Glucose 66 L 74-106 mg/dL Calcium Level 9.8 8.7-10.4 mg/dL Current Medications Medications (Trade) Dose Ordered Sig/[place] Route Start Time Stop Time Status Last Admin Vancomycin HCl 200 ml @ 200 mls/hr ONCE ONCE IV 04/30/25 00:15 04/30/25 01:14 DC 04/30/25 00:15 Sodium Chloride 1,000 ml @ 1,000 mls/hr Q1H ONCE IV 04/30/25 00:15 04/30/25 01:14 DC 04/30/25 00:15 [place] [id number] Ph: [phone] DIAGNOSTIC IMAGING Diagnostic Imaging Report : [id number] Signed PATIENT: SAMUEL PEDRAZA ACCT: [id number] UNIT: [id number] : 1950 LOC: ER ROOM / BED: / AGE / SEX: 74 / F ADM STATUS: REG ER SERVICE 40 ORDERING PHYSICIAN: FAWAD DARLING PROCEDURE(s): ABPL - CT AB PEL WO CON-NO ORAL OR IV REASON: back pain ORDER NUMBER(s): [id number], ACCESSION NUMBER(s): [id number] COMPUTERIZED TOMOGRAPHY ABDOMEN AND PELVIS WITHOUT CONTRAST REASON FOR EXAM: back pain COMPARISON: None TECHNIQUE: Spiral scans were acquired from the diaphragm to the symphysis pubis without intravenous contrast administration. 2-D coronal and sagittal reformatted images were provided. Radiation optimization: All CT scans at this facility use at least one of these dose optimization techniques: Automated exposure control mA and/or kV adjustment per patient size (includes targeted exams where dose is matched to clinical indication) or iterative reconstruction. RADIATION DOSE: CTDI: 5 mGy DLP: 265 mGy-cm FINDINGS: Evaluation of the visualized lung bases is suboptimal secondary to respiratory motion artifact. There is no pleural effusion. There is no pericardial effusion. There is a lobulated 2.8 x 1.7 cm soft tissue mass in the subcutaneous fat of the inferomedial left breast. The spleen is not enlarged. The liver is normal in size. Evaluation of the abdominal organs is suboptimal in the absence of intravenous contrast. There are several tiny calcified gallstones within the gallbladder. Unenhanced appearance of the pancreas is grossly unremarkable. The adrenal glands are normal. The kidneys are similar in size. There is no hydronephrosis of either kidney. No renal, ureteral, or bladder calculus is identified. The urinary bladder is unremarkable. No free fluid is identified in the abdomen or pelvis. There is no pathologic lymphadenopathy by size criteria. There is extensive colonic diverticulosis without evidence of diverticulitis. The colonic stool burden is moderate. The appendix is not seen. There is no inflammatory change about the cecum to suggest acute appendicitis. There is no pathologic distention of the small bowel. There is moth eaten appearance of the skeleton most suggestive of diffuse metastatic disease. There is no definite acute fracture. There are age- indeterminate compression deformities of multiple thoracic and lumbar vertebral bodies. IMPRESSION: Moth eaten appearance of the skeleton most suggestive of diffuse metastatic disease. Multiple age-indeterminate compression deformities in the visualized thoracic and lumbar spine. Consider MRI without and with contrast to evaluate for pathologic spine fractures and determine chronicity. There is a lobulated 2.8 cm mass in the inferomedial left breast concerning for malignancy. Correlate clinically. Extensive colonic diverticulosis without evidence of diverticulitis. Moderate colonic stool burden. Correlate clinically for constipation. ATED BY: GARRETT MARTÍNEZ MD DICTATED DATE/TIME: 04/29/252335 SIGNED BY: GARRETT MARTÍNEZ MD SIGNED DATE/TIME: 04/29/252335 CC: X-Ray, Labs, Meds, VS Comment PATIENT STATES ONE WEEK AGO SHE HAD BIOPSY DONE OF HER LEFT BREAST FOR A MASS THAT HAS GROIN. STATES SHE HAS NOT HAD FOLLOW UP APPOINTMENT YET. HE WAS CONCERNS OF ELDER ABUSE, SEE NURSING NOTE PATIENT WILL BE ADMITTED FOR POSSIBLE METASTATIC DISEASE THERE WAS CONCERNS OF POSSIBLE URINARY TRACT INFECTION, THE PATIENT HAS NOT NOT BEEN ABLE TO GIVE URINE SAMPLE PATIENT REFUSED ANY PAIN MEDICATION AT THIS TIME PATIENT MAY REQUIRE SOCIAL SERVICE CONSULT SHE HAS BEEN NOT FEEL SAFE GOING BACK TO THE HOME SHE CAME FROM CT ABDOMEN PELVIS: IMPRESSION: Moth eaten appearance of the skeleton most suggestive of diffuse metastatic disease. Multiple age-indeterminate compression deformities in the visualized thoracic and lumbar spine. Consider MRI without and with contrast to evaluate for pathologic spine fractures and determine chronicity. There is a lobulated 2.8 cm mass in the inferomedial left breast concerning for malignancy. Correlate clinically. Extensive colonic diverticulosis without evidence of diverticulitis. Moderate colonic stool burden. Correlate clinically for constipation. Time of 1ST Reevaluation: 23:00 Reevaluation 1ST: Unchanged Patient Education/Counseling: Treatment, Need For Follow Up Family Education/Counseling: No Family Present Additional Information Previous visits reviewed: June 10, 2023, October 29, 2023, and January 10, 2024 encounters for hypoglycemia as, cellulitis, and diabetic foot infection, respectively The following tests were ordered, and results were reviewed by me: CT abdomen and pelvis without contrast, lactic acid reflex, UA, BMP, CBC Additional Information was gathered from interviewing the following independent historians: N/A I reviewed and agreed with the following test results read by other providers: CT abdomen and pelvis without contrast I discussed treatment and results with medical personnel and: patient SEPSIS Sepsis Screen Physician Orders Urinalysis (04/29/25 22:41) Ct Ab Pel Wo Con-No Oral Or Iv (04/29/25 22:41) Vital Signs Date Time Temp Pulse Resp B/P (MAP) Pulse Ox O2 Delivery O2 Flow Rate FiO2 04/29/25 22:48 113 04/29/25 22:38 113 04/29/25 22:20 98.5 94 14 152/73 (99) 99 98.5 Laboratory Tests Test 04/29/25 22:47 04/30/25 00:26 Lactic Acid Level 3.3 mmol/L (0.4-2.0) *H 1.7 mmol/L (0.4-2.0) White Blood Count 7.5 10^3/uL (4.4-10.8) Medications Medications Dose Ordered Sig/[place] Route Start Time Stop Time Status Last Admin Dose Admin Sodium Chloride 1,000 ml @ 1,000 mls/hr Q1H ONCE IV 04/30/25 00:15 04/30/25 01:14 DC 04/30/25 00:15 Vancomycin HCl 200 ml @ 200 mls/hr ONCE ONCE IV 04/30/25 00:15 04/30/25 01:14 DC 04/30/25 00:15 Departure 1 Departure Time of Disposition: 02:34 Impression: Primary Impression: Metastatic disease Qualified Codes: C79.89 - Secondary malignant neoplasm of other specified sites Additional Impression: Back pain Qualified Codes: M54.6 - Pain in thoracic spine; G89.29 - Other chronic pain Disposition: ADMITTED INPATIENT Condition: Stable Discharged With: Self Critical Care Note Critical Care Time?: No Stability Stability form required: No Heart Score Heart Score: Heart Score Response (Comments) Value History N/A 0 EKG N/A 0 Age N/A 0 Risk Factors N/A 0 Troponin N/A 0 Total 0 I personally scribed for FAWAD DARLING FIRE SPRINKLER FITTER ([email or web address]) on 04/29/25 at 22:48. Electronically submitted by George Beckwith ([email or web address]). I personally scribed for DARLINGFRANCESCOOPHER E FIRE SPRINKLER FITTER ([email or web address]) on 04/29/25 at 22:50. Electronically submitted by George Beckwith ([email or web address]). I personally scribed for FRANCESCO DARLINGOPHER E FIRE SPRINKLER FITTER ([email or web address]) on 04/29/25 at 23:48. Electronically submitted by George Beckwith ([email or web address]). FRANCESCO DARLINGOPHER E FIRE SPRINKLER FITTER Apr 29, 2025 22:48
[2025-04-29 23:07] LABS: Hematocrit 38.4 % (36.0-46.0); Hemoglobin 12.7 g/dL (12.2-16.2); Mean Corpuscular Hemoglobin 28.2 pg (28.0-32.0); Mean Corpuscular Volume 85.2 fL (80.0-100.0); Nucleated Red Blood Cells % 0.1 %
[2025-04-29 23:08] LABS: Chloride 103 mmol/L (98-107); Potassium 3.6 mmol/L (3.5-5.1); Sodium 138 mmol/L (136-145)
[2025-04-29 23:09] LABS: Anion Gap 12 (5-15); Calcium 9.8 mg/dL (8.7-10.4); Carbon Dioxide 23 mmol/L (20-31)
[2025-04-29 23:14] LABS: BUN/Creatinine Ratio 32.6 (10.0-20.0)
[2025-04-29 23:18] LABS: Blood Urea Nitrogen 29 mg/dL (9-23); Glucose 66 mg/dL (74-106); Lactic Acid w/Reflex 3.3 mmol/L (0.4-2.0)
--- NOTE | 2025-04-29 23:39 | DVH ---
COMPUTERIZED TOMOGRAPHY ABDOMEN AND PELVIS WITHOUT CONTRAST REASON FOR EXAM: back pain COMPARISON: None TECHNIQUE: Spiral scans were acquired from the diaphragm to the symphysis pubis without intravenous c ontrast administration. 2-D coronal and sagittal reformatted images were provided. Radiation optimiza tion: All CT scans at this facility use at least one of these dose optimization techniques: Automated exposure control mA and/or kV adjustment per patient size (includes targeted exams where dose is mat ched to clinical indication) or iterative reconstruction. RADIATION DOSE: CTDI: 5 mGy DLP: 265 mGy-cm FINDINGS: Evaluation of the visualized lung bases is suboptimal secondary to respiratory motion artifact. There is no pleural effusion. There is no pericardial effusion. There is a lobulated 2.8 x 1.7 cm soft tis luke mass in the subcutaneous fat of the inferomedial left breast. The spleen is not enlarged. The liver is normal in size. Evaluation of the abdominal organs is subop timal in the absence of intravenous contrast. There are several tiny calcified gallstones within the gallbladder. Unenhanced appearance of the pancreas is grossly unremarkable. The adrenal glands are n ormal. The kidneys are similar in size. There is no hydronephrosis of either kidney. No renal, uret eral, or bladder calculus is identified. The urinary bladder is unremarkable. No free fluid is identi fied in the abdomen or pelvis. There is no pathologic lymphadenopathy by size criteria. There is ext ensive colonic diverticulosis without evidence of diverticulitis. The colonic stool burden is modera te. The appendix is not seen. There is no inflammatory change about the cecum to suggest acute appen dicitis. There is no pathologic distention of the small bowel. There is moth eaten appearance of the skeleton most suggestive of diffuse metastatic disease. There is no definite acute fracture. There ar e age-indeterminate compression deformities of multiple thoracic and lumbar vertebral bodies. IMPRESSION: Moth eaten appearance of the skeleton most suggestive of diffuse metastatic disease. Multiple age-ind eterminate compression deformities in the visualized thoracic and lumbar spine. Consider MRI without and with contrast to evaluate for pathologic spine fractures and determine chronicity. There is a lobulated 2.8 cm mass in the inferomedial left breast concerning for malignancy. Correlate clinically. Extensive colonic diverticulosis without evidence of diverticulitis. Moderate colonic stool burden. Correlate clinically for constipation.
[2025-04-30] MEDS: SODIUM CHLORIDE 0.9% 1,000 ML IV ONE (00:15)
[2025-04-30] MEDS: VANCOMYCIN 1GM/200ML PM 200 ML IV ONE (00:15)
[2025-04-30 01:50] VITALS: PULSE 96; RESP 18; O2SAT 97
[2025-04-30] MEDS ORDERED: MORPHINE SULFATE INJ 2 MG/ml SYRG IV PRN (03:00)
[2025-04-30] MEDS ORDERED: ACETAMINOPHEN 325 MG TAB PO PRN (03:00)
[2025-04-30] MEDS ORDERED: ERGOCALCIFEROL 50,000 UNIT(1.25MG) CAP PO SCH (03:15)
--- NOTE | 2025-04-30 03:22 | DVHHP2 ---
History of Present Illness History of Present Illness Patient is 74 years old female with past medical history of hypertension, diabetes mellitus type 2, atrial fibrillation on Eliquis, hyperlipidemia, HFrEF, EF 40% came with a complaint of bilateral pelvic and lower back pain. As per patient she has been having bilateral pelvic and lower back pain for last 2 weeks, gradual onset, 9/10, constant, increased with movement, no relieving factor, sharp in nature. Patient also reported having poor appetite for last 2 weeks and lost 4-5 lb in last 1 month. Patient denied having any colonoscopy before and she reported she had mammogram done on 1 year before but could not mentioned where it was done, she reported report was okay. Patient denied any chest pain, shortness of breath, fever, diarrhea, acute leg swelling, dysarthria change in vision. Initial lab workup revealed lactic acid 3.3. Urinalysis revealed leukocyte esterase 3+, WBC 27. CT abdomen and pelvis revealed-Moth eaten appearance of the skeleton most suggestive of diffuse metastatic disease. Multiple age-indeterminate compression deformities in the visualized thoracic and lumbar spine. There is a lobulated 2.8 cm mass in the inferomedial left breast concerning for malignancy. Extensive colonic diverticulosis without evidence of diverticulitis. Moderate colonic stool burden. Past Medical History hypertension, diabetes mellitus type 2, atrial fibrillation on Eliquis, hyperlip idemia, HFrEF, EF 40% Past Social History Denies well Review of Systems Review of Systems Allergy- PCN Patient was seen today at the bedside. Cardiovascular- deny acute chest pain or shortness of breath or cough or palpitation Respiratory denies cough or short of breath or wheezing Gastrointestinal- denies any rectal bleeding, nausea or vomiting Musculoskeletal-pelvic and lower back pain Neurological- denies acute dysarthria, dysphagia, change in vision Psychiatry- denies depression or SI or HI Skin- denies acute rash or purpura Allergies: Coded Allergies: Penicillins (Verified Allergy, Unknown, 06/09/23) Medications Current Medications Medications Dose Ordered Sig/[place] Route Start Time Stop Time Status Last Admin Dose Admin Sodium Chloride 10 ml Q8HR IV 04/30/25 06:00 Enoxaparin Sodium 40 mg DAILY SC 04/30/25 10:00 Acetaminophen 650 mg Q6HP PRN PO 04/30/25 03:00 Morphine Sulfate 2 mg Q4HPRN PRN IV 04/30/25 03:00 Apixaban 5 mg BID PO 04/30/25 10:00 UNV Carvedilol 12.5 mg BID PO 04/30/25 10:00 Empaglifozin 10 mg DAILY PO 04/30/25 10:00 Ergocalciferol 50,000 unit QWEEKLY PO 04/30/25 03:15 UNV Furosemide 20 mg DAILY PO 04/30/25 10:00 Gabapentin 100 mg BID PO 04/30/25 10:00 Losartan Potassium 50 mg DAILY PO 04/30/25 10:00 UNV Pravastatin Sodium 40 mg DAILY PO 04/30/25 10:00 Sacubitril/ Valsartan 1 tab BID PO 04/30/25 10:00 UNV Pantoprazole Sodium 40 mg DAILY@0600 PO 04/30/25 06:00 UNV Exam Vital Signs Vital Signs Date Time Temp Pulse Resp B/P (MAP) Pulse Ox O2 Delivery O2 Flow Rate FiO2 04/29/25 22:48 113 04/29/25 22:20 98.5 14 152/73 (99) 99 98.5 Exam General examination- awake, alert, conversant HEENT- PEERLA, no acute nasal discharge Cardiovascular- S1-S2 audible, rate and rhythm regular, no murmur Respiratory- CTAB, no wheeze or rhonchi Gastrointestinal-nontender, bowel sound+. Nondistended Spine/Musculoskeletal-bilateral pelvic tenderness++, lumbar sacral spine tenderness++, Lower extremity- no leg edema Neurological- cranial nerves intact, no acute dysarthria or dysphagia Psychiatry- denies depression or SI or HI Skin- no acute rash or purpura Labs/Xrays Labs Test 04/30/25 00:26 04/29/25 22:47 Range/Units Lactic Acid Level 1.7 0.4-2.0 mmol/L White Blood Count 7.5 4.4-10.8 10^3/uL Red Blood Count 4.51 4.0-5.20 10^6/uL Hemoglobin 12.7 12.2-16.2 g/dL Hematocrit 38.4 36.0-46.0 % Mean Corpuscular Volume 85.2 80.0-100.0 fL Mean Corpuscular Hemoglobin 28.2 28.0-32.0 pg Mean Corpuscular Hemoglobin Concent 33.1 32.0-36.0 g/dL Red Cell Distribution Width 15.8 H 11.8-14.3 % Platelet Count 259 140-450 10^3/uL Mean Platelet Volume 8.1 6.9-10.8 fL Neutrophils (%) (Auto) 80.5 H 37.0-80.0 % Lymphocytes (%) (Auto) 11.5 10.0-50.0 % Monocytes (%) (Auto) 7.7 0.0-12.0 % Eosinophils (%) (Auto) 0.1 0.0-7.0 % Basophils (%) (Auto) 0.2 0.0-2.0 % Neutrophils # (Auto) 6.0 1.6-8.6 10 ^3/uL Lymphocytes # (Auto) 0.9 0.4-5.4 10 ^3/uL Monocytes # (Auto) 0.6 0-1.3 10 ^3/uL Eosinophils # (Auto) 0 0-0.8 10 ^3/uL Basophils # (Auto) 0 0-0.2 10 ^3/uL Nucleated Red Blood Cells 0.1 % Sodium Level 138 136-145 mmol/L Potassium Level 3.6 3.5-5.1 mmol/L Chloride Level 103 98-107 mmol/L Carbon Dioxide Level 23 20-31 mmol/L Anion Gap 12 5-15 Blood Urea Nitrogen 29 H 9-23 mg/dL Creatinine 0.89 0.550-1.02 mg/dL Glomerular Filtration Rate Calc 68 >90 mL/min BUN/Creatinine Ratio 32.6 H 10.0-20.0 Serum Glucose 66 L 74-106 mg/dL Calcium Level 9.8 8.7-10.4 mg/dL SEPSIS Sepsis Screen Date sepsis recognized/suspect: Apr 29, 2025 Time Sepsis recognized/suspect: 2219 Recent Procedure: No On Antibiotic Therapy: Yes Respiratory Rate >20: No Heart Rate >90: Yes Temp<36 C (96.8 F) or >38.3 C: No SBP <90 or MAP <65 mmHG: No New Acute Mental Status Change: No Is the patient on CPAP, BIPAP,: No Physician Orders Urinalysis (04/29/25 22:41) Ct Ab Pel Wo Con-No Oral Or Iv (04/29/25 22:41) Admit (04/30/25 02:54) Sodium Chloride Lock (Saline Lock Ns) (04/30/25 06:00) Enoxaparin Sodium (Lovenox) (04/30/25 10:00) Complete Blood Count (05/01/25 04:00) Comprehensive Metabolic Panel (05/01/25 04:00) Cardiac Diet-2gna,Lofat,Lochol (04/30/25 Breakfast) Echo 2d Mode Cardiac Dop (04/30/25 02:54) Acetaminophen Tablet (Tylenol Tablet) (04/30/25 03:00) Morphine Sulfate Injection (04/30/25 03:00) Notify Md Of Changes From Base (04/30/25 02:54) Apixaban (Eliquis) (04/30/25 10:00) Carvedilol Tablet (Coreg Tablet) (04/30/25 10:00) Empagliflozin (Jardiance) (04/30/25 10:00) Ergocalciferol (Vitamin D 50,000 Unit) (04/30/25 03:15) Furosemide Tablet (Lasix Tablet) (04/30/25 10:00) Gabapentin Capsule (Neurontin Capsule) (04/30/25 10:00) Losartan Tablet (Cozaar Tablet) (04/30/25 10:00) Pravastatin Sodium Tablet (Pravachol Tab (04/30/25 10:00) Sacubitril-Valsartan (Entresto 24-26 Mg (04/30/25 10:00) Carcinoembryonic Antigen (04/30/25 03:13) Thyroid Stimulating Hormone (04/30/25 03:13) Troponin-I Hs (04/30/25 03:13) Troponin-I Hs (04/30/25 04:13) Troponin-I Hs (04/30/25 06:13) B-Type Natriuretic Peptide (04/30/25 03:13) Chest Xray 1 View (04/30/25 03:13) Lumbar Spine Wo Contrast (04/30/25 08:00) L Breast Ultrasound (04/30/25 03:19) Pantoprazole Tablet (Protonix Tablet) (04/30/25 03:30) Pantoprazole Tablet (Protonix Tablet) (04/30/25 06:00) Vital Signs Date Time Temp Pulse Resp B/P (MAP) Pulse Ox O2 Delivery O2 Flow Rate FiO2 04/29/25 22:48 113 04/29/25 22:38 113 04/29/25 22:20 98.5 94 14 152/73 (99) 99 98.5 Laboratory Tests Test 04/29/25 22:47 04/30/25 00:26 Lactic Acid Level 3.3 mmol/L (0.4-2.0) *H 1.7 mmol/L (0.4-2.0) White Blood Count 7.5 10^3/uL (4.4-10.8) Medications Medications Dose Ordered Sig/[place] Route Start Time Stop Time Status Last Admin Dose Admin Sodium Chloride 1,000 ml @ 1,000 mls/hr Q1H ONCE IV 04/30/25 00:15 04/30/25 01:14 DC 04/30/25 00:15 1,000 MLS/HR Vancomycin HCl 200 ml @ 200 mls/hr ONCE ONCE IV 04/30/25 00:15 04/30/25 01:14 DC 04/30/25 00:15 200 MLS/HR Assessment/Plan Assessment/Plan Assessment and plan # 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 Multiple age-indeterminate compression deformities in the visualized thoracic and lumbar spine. There is a lobulated 2.8 cm mass in the inferomedial left breast concerning for malignancy. -pending radiology consult for biopsy on breast mass -continue pain medication as prescribed # suspected carcinoma of the left breast -CT abdomen and pelvis revealed-There is a lobulated 2.8 cm mass in the inf eromedial left breast concerning for malignancy. -pending radiology consult for biopsy # HFrEF, LVEF 40% from previous echo on 10/30/23 -continue Jardiance 10 mg p.o. daily -continue carvedilol 12.5 mg p.o. b.i.d. -continue Eliquis 5 mg p.o. b.i.d. -continue pravastatin 40 mg p.o. daily -continue Entresto 24-25 mg 1 tab p.o. b.i.d. -continue Lasix 20 mg p.o. daily -pending echo 2D # lactic acidosis -lactic acid 3.3> 1.7 -status post IV fluid # acute complicated cystitis -urinalysis revealed leukocyte esterase 3+, WBC 27 -continue ceftriaxone 1 g IV daily Pending urine culture # hypertension -continue carvedilol 12.5 mg p.o. b.i.d. -continue Lasix 20 mg p.o. daily --continue Entresto 24-25 mg 1 tab p.o. b.i.d. #Diabetes mellitus 2 -monitor blood sugar level # atrial fibrillation -EKG atrial fibrillation with controlled ventricular rate -continue Eliquis 5 mg p.o. b.i.d. # hyperlipidemia -continue pravastatin 40 mg p.o. daily # diverticulosis with the diverticulitis -avoid dehydration and constipation Diet-cardiac and diabetic diet PCP-Dr. Martins Goals of care, Code status full code ; discussed with >15 minutes PUD prophylaxis: Pantoprazole DVT prophylaxis: Eliquis Plan discussed with Dr. Crocker , nursing staff, Total time spent on patient evaluation, chart review, assessment and plan, discussion discussion >35 minutes Plan discussed with: Patient, Other My Orders Orders - JAN YO RESIDENT Procedure Category Date Status Time Admit ADMIT 04/30/25 Transmitted 02:54 Sodium Chloride Lock PHA 04/30/25 In Process (Saline Lock Ns) 06:00 Enoxaparin Sodium PHA 04/30/25 In Process (Lovenox) 10:00 Complete Blood Count LAB 05/01/25 Verified 04:00 Comprehensive LAB 05/01/25 Verified Metabolic Panel 04:00 Cardiac DIET 04/30/25 Transmitted Diet-2gna,Lofat,Lochol Breakfast Echo 2d Mode Cardiac US 04/30/25 Logged DOP 02:54 Acetaminophen Tablet PHA 04/30/25 In Process (Tylenol Tablet) 03:00 Morphine Sulfate PHA 04/30/25 In Process Injection 03:00 Notify Of Changes JULIO 04/30/25 In Process From Base 02:54 Apixaban (Eliquis) PHA 04/30/25 Pending 10:00 Carvedilol Tablet PHA 04/30/25 In Process (Coreg Tablet) 10:00 Empagliflozin PHA 04/30/25 Logged (Jardiance) 10:00 Ergocalciferol PHA 04/30/25 Pending (Vitamin D 50,000 03:15 Furosemide Tablet PHA 04/30/25 Logged (Lasix Tablet) 10:00 Gabapentin Capsule PHA 04/30/25 Logged (Neurontin Capsule) 10:00 Losartan Tablet PHA 04/30/25 Pending (Cozaar Tablet) 10:00 Pravastatin Sodium PHA 04/30/25 Logged Tablet (Pravachol Tab 10:00 Sacubitril-Valsartan PHA 04/30/25 Pending (Entresto 24-26 Mg 10:00 Carcinoembryonic LAB 04/30/25 Logged Antigen 03:13 Thyroid Stimulating LAB 04/30/25 Logged Hormone 03:13 Troponin-I Hs LAB 04/30/25 Logged 03:13 Troponin-I Hs LAB 04/30/25 Logged 04:13 Troponin-I Hs LAB 04/30/25 Logged 06:13 B-Type Natriuretic LAB 04/30/25 Logged Peptide 03:13 Chest Xray 1 View XY 04/30/25 Logged 03:13 Lumbar Spine Wo MRI 04/30/25 Logged Contrast 08:00 L Breast Ultrasound US 04/30/25 Logged 03:19 Pantoprazole Tablet PHA 04/30/25 Logged (Protonix Tablet) 03:30 Pantoprazole Tablet PHA 04/30/25 Logged (Protonix Tablet) 06:00 Date of Service: Apr 30, 2025 Billing Provider: OLIVA CROCKER MD Common Visit Codes: [id number] INP/OBS CARE (HIGH) Secondary Visit Codes: [id number]-[id number] CARE PLAN 30 MINUTES JAN YO RESIDENT Apr 30, 2025 03:22
[2025-04-30] MEDS: PANTOPRAZOLE 40 MG TAB PO ONE (03:48)
[2025-04-30 04:33] LABS: Urine Protein, UAD TRACE (Negative)
[2025-04-30] MEDS: cefTRIAXone 1GM/50ML D5W 50 ML IV ONE (06:00)
[2025-04-30] MEDS: SODIUM CHLOR 0.9% PF (SALINE LOCK) 10ML VIAL/SYR IV SCH (06:00)
--- NOTE | 2025-04-30 06:57 | DVH ---
CHEST RADIOGRAPH Indication: CHF Technique: Single frontal view of the chest was obtained Comparison: XY CHEST PORTABLE on DOS: 11/01/23 FINDINGS: Lines and Tubes: None Lungs: Bilateral interstitial prominence. No focal consolidation. Pleura: No effusion. No pneumothorax. Cardiomediastinal contours: Unremarkable Bones: No acute osseous abnormality. IMPRESSION: 1. Pulmonary vascular congestion.
[2025-04-30] MEDS ORDERED: APIXABAN 5 MG TAB PO SCH (10:00)
[2025-04-30] MEDS ORDERED: ENOXAPARIN SOD 40 MG/0.4 ML SYRINGE SC SCH (10:00)
[2025-04-30] MEDS ORDERED: LOSARTAN POTASSIUM 50 MG TAB PO SCH (10:00)
[2025-04-30 10:18] LABS: Anion Gap 10 (5-15)
[2025-04-30 10:23] LABS: BUN/Creatinine Ratio 29.3 (10.0-20.0)
[2025-04-30 10:26] LABS: Alanine Aminotransferase 36 U/L (7-40); Albumin 3.9 g/dL (3.2-4.8); Alkaline Phosphatase 172 U/L (46-116); Bilirubin, Total 0.3 mg/dL (0.2-1.0); Blood Urea Nitrogen 27 mg/dL (9-23); Calcium 9.8 mg/dL (8.7-10.4); Carbon Dioxide 24 mmol/L (20-31); Chloride 104 mmol/L (98-107); Glucose 68 mg/dL (74-106); Potassium 3.5 mmol/L (3.5-5.1); Sodium 138 mmol/L (136-145); Total Protein 6.5 g/dL (5.7-8.2)
[2025-04-30] MEDS: CARVEDILOL 12.5 MG TAB PO SCH (11:22)
[2025-04-30] MEDS: EMPAGLIFLOZIN 10 MG TAB PO SCH (11:22)
[2025-04-30] MEDS: SACUBITRIL-VALSARTAN 24mg/26mg TAB PO SCH (11:22)
[2025-04-30] MEDS: FUROSEMIDE 20 MG TAB PO SCH (11:23)
[2025-04-30] MEDS: PRAVASTATIN SODIUM 20 MG TAB PO SCH (11:23)
[2025-04-30] MEDS: GABAPENTIN 100 MG CAP PO SCH (11:23)
[2025-04-30] MEDS: ENOXAPARIN SOD 100 MG/1 ML SYRINGE SC SCH (11:24)
--- NOTE | 2025-04-30 11:29 | DVH ---
PROCEDURE: Ultrasound-guided biopsy Procedural Personnel Attending physician(s): Joni Oliveira Fellow physician(s): None Resident physician(s): None Advanced practice provider(s): None Procedure Date (//yyyy): 04/30/2025 Pre-procedure diagnosis: Left breast mass Post-procedure diagnosis: Same Indication: Histopathologic diagnosis Previous biopsy of same target: No Additional clinical history: None Complications: No immediate complications. IMPRESSION: Ultrasound-guided biopsy of left breast mass. Plan: Specimen(s) sent for evaluation. PROCEDURE SUMMARY: - Percutaneous US-guided core needle biopsy - Additional procedure(s): None PROCEDURE DETAILS: Pre-procedure Reference imaging for biopsy target: CT A/P 04/29/2025 Consent: Informed consent for the procedure including risks, benefits and alternatives was obtained a nd time-out was performed prior to the procedure. Preparation: The site was prepared and draped using maximal sterile barrier technique including cutan eous antisepsis. Anesthesia/sedation Level of anesthesia/sedation: No sedation Anesthesia/sedation administered by: Not applicable Total intra-service sedation time (minutes): 0 Imaging prior to biopsy The patient was positioned supine. Initial imaging was performed. Biopsy target: - Organ or target location: Other-breast - Laterality: Left - Maximal diameter (cm): 2.8 Other findings: None Biopsy Local anesthesia was administered. Under US guidance, the biopsy needle was advanced to the target an d biopsy was performed. Coaxial needle: None Core needle biopsy device: [employer] Core needle size: 18 gauge Number of core specimens: 4 Fine needle aspiration device: NA Fine needle size: Not applicable Number of FNA specimens: Not applicable On-site assessment of biopsy adequacy: No Additional sampling recommendations: None Preliminary assessment of sample adequacy: Not applicable Needle removal The biopsy needle was removed and a sterile dressing was applied. Tract embolization: None Imaging following biopsy Immediate post-biopsy ultrasound was performed. Post-biopsy imaging findings: No significant hemorrhage Additional Details Additional description of procedure: None Registry event: V/3/g Device used: None Equipment details: None Unique Device Identifiers: Not available Specimens removed: Biopsy samples as detailed above Estimated blood loss (mL): Less than 10 Standardized report: [email or web address] Attestation Signer name: Joni Oliveira I attest that I was present for the entire procedure. I reviewed the stored images and agree with the report as written.
[2025-04-30 13:11] VITALS: BP_SYST 124; BP_SYST 154; BP_DIAS 68; BP_DIAS 80; PULSE 62; PULSE 64; PULSE 90; RESP 16; RESP 18; TEMP 99.1; TEMP 99.2; O2SAT 97; O2SAT 98
--- NOTE | 2025-04-30 15:34 | DVHPNRES ---
Progress Note Date Seen: Apr 30, 2025 Resident Creating Document: DANIELLE PARKER RESIDENT Medical Necessity Reason Pt with a Central, PICC or Fol: No Subjective Review of Systems History of Present Illness Patient is 74 years old female with past medical history of hypertension, diabetes mellitus type 2, atrial fibrillation on Eliquis, hyperlipidemia, HFrEF, EF 40% came with a complaint of bilateral pelvic and lower back pain. As per patient she has been having bilateral pelvic and lower back pain for last 2 weeks, gradual onset, 9/10, constant, increased with movement, no relieving factor, sharp in nature. Patient also reported having poor appetite for last 2 weeks and lost 4-5 lb in last 1 month. Patient denied having any colonoscopy b efore and she reported she had mammogram done on 1 year before but could not mentioned where it was done, she reported report was okay. Patient denied any chest pain, shortness of breath, fever, diarrhea, acute leg swelling, dysarthria, change in vision. Initial lab workup revealed lactic acid 3.3. Urinalysis revealed leukocyte esterase 3+, WBC 27. CT abdomen and pelvis revealed-Moth eaten appearance of the skeleton most suggestive of diffuse metastatic disease. Multiple age-indeterminate compression deformities in the visualized thoracic and lumbar spine. There is a lobulated 2.8 cm mass in the inferomedial left breast concerning for malignancy. Extensive colonic diverticulosis without evidence of diverticulitis. Moderate colonic stool burden. Past Medical History hypertension, diabetes mellitus type 2, atrial fibrillation on Eliquis, hyperlipidemia, HFrEF, EF 40% 04/30 interval events: The patient complains of back pain today. He denies any shortness of breath, chest pain, fever or any other complaints today. Review of systems: Patient was seen and examined at bedside. Overnight events were reviewed. Above. No new complaints reported. Rest of the ROS is negative. Objective vital signs Vital Sign Date Time Temp Pulse Resp B/P (MAP) Pulse Ox O2 Delivery O2 Flow Rate FiO2 04/30/25 13:11 99.1 90 16 154/80 (104) 98 99.1 04/30/25 08:00 Room Air* 0 21 medications Current Medications Medications Dose Ordered Sig/[place] Route Start Time Stop Time Status Last Admin Dose Admin Sodium Chloride 10 ml Q8HR IV 04/30/25 06:00 04/30/25 13:19 10 ML Acetaminophen 650 mg Q6HP PRN PO 04/30/25 03:00 Morphine Sulfate 2 mg Q4HPRN PRN IV 04/30/25 03:00 Carvedilol 12.5 mg BID PO 04/30/25 10:00 04/30/25 11:22 12.5 MG Empaglifozin 10 mg DAILY PO 04/30/25 10:00 04/30/25 11:22 10 MG Ergocalciferol 50,000 unit QWEEKLY PO 04/30/25 03:15 Furosemide 20 mg DAILY PO 04/30/25 10:00 04/30/25 11:23 20 MG Gabapentin 100 mg BID PO 04/30/25 10:00 04/30/25 11:23 100 MG Pravastatin Sodium 40 mg DAILY PO 04/30/25 10:00 04/30/25 11:23 40 MG Sacubitril/ Valsartan 1 tab BID PO 04/30/25 10:00 04/30/25 11:22 1 TAB Pantoprazole Sodium 40 mg DAILY@0600 PO 05/01/25 06:00 Ceftriaxone Sodium 50 ml @ 100 mls/hr DAILY@09 IV 05/01/25 06:00 Enoxaparin Sodium 40 mg Q12HR SC 04/30/25 10:00 04/30/25 11:24 40 MG Acetaminophen/ Hydrocodone Bitart 1 tab Q4HPRN PRN PO 04/30/25 14:00 Enteral Nutritional Formula 240 ml TIDWM PO 04/30/25 18:00 UNV Examination Pt is lying on bed General Appearance: Alert, Oriented X3, Cooperative, Mild distress HEENT: Atraumatic, Mucous membranes moist/pink Respiratory: Clear to auscultation, Normal air movement, No added sounds Cardiovascular: Regular rate, Normal S1, Normal S2, No murmurs Breasts examination: 1 cm irregular, mobile nodule in the left breast at 4 to 5 o'clock position, no nipple discharge, no retraction Abdominal/ : Active bowel sounds, Soft, no distention, no tenderness Musculoskeletal: Tenderness in the lumbar region. Extremities: No edema, Normal pulses, No tenderness/swelling Skin: No Significant rash, except past surgical scars Neuro: Normal speech, sensorimotor deficits none Psych/Mental Status: Mental status NL, Mood NL Nurse was there as learning manager during examination laboratory and microbiology Laboratory Tests 04/30/25 09:54 04/29/25 22:47 Test 04/30/25 09:54 Range/Units Serum Glucose 68 L 74-106 mg/dL Microbiology Date/Time Source Procedure Growth Status 04/30/25 08:15 Nose MRSA Screen - Final Complete Labs and/or images reviewed: Labs reviewed by me, Image(s) reviewed by me Problem List/Assessment/Plan Problem List/Assessment/Plan # 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 Multiple age-indeterminate compression deformities in the visualized thoracic and lumbar spine. There is a lobulated 2.8 cm mass in the inferomedial left breast concerning for malignancy. -pending radiology consult for biopsy on breast mass -continue pain medication morphine, [place] -gabapentin # suspected carcinoma of the left breast -CT abdomen and pelvis revealed-There is a lobulated 2.8 cm mass in the inferomedial left breast concerning for malignancy. -ultrasound guided biopsy of the left breast was done. -spoke with Dr. Yen, advised outpatient follow-up once biopsy results are available # HFrEF, not in exacerbation - LVEF 40% from previous echo on 10/30/23 -continue Jardiance 10 mg p.o. daily -continue carvedilol 12.5 mg p.o. b.i.d. -continue Eliquis 5 mg p.o. b.i.d. -continue pravastatin 40 mg p.o. daily -continue Entresto 24-25 mg 1 tab p.o. b.i.d. -continue Lasix 20 mg p.o. daily -pending echo 2D # lactic acidosis -lactic acid 3.3> 1.7 -status post IV fluid # acute complicated cystitis -urinalysis revealed leukocyte esterase 3+, WBC 27 -continue ceftriaxone 1 g IV daily Pending urine culture # hypertension -continue carvedilol 12.5 mg p.o. b.i.d. -continue Lasix 20 mg p.o. daily --continue Entresto 24-25 mg 1 tab p.o. b.i.d. #Diabetes mellitus 2 -monitor blood sugar level # atrial fibrillation -EKG atrial fibrillation with controlled ventricular rate -continue Eliquis 5 mg p.o. b.i.d. # hyperlipidemia -continue pravastatin 40 mg p.o. daily # diverticulosis with no diverticulitis -avoid dehydration and constipation GI prophylaxis: Not needed DVT prophylaxis: Eliquis Diet: Diabetic Goals of care discussed with the patient for more than 27 minutes: Full code status Case discussed with Dr. Kasper , patient and RN Plan discussed with: Patient, Other (RN) My Orders My Orders Orders - DANIELLE PARKER Procedure Category Date Status Time Hydrocodone-Acet PHA 04/30/25 In Process 5/325mg Tab ([place] 14:00 Nutritional PHA 04/30/25 Logged Supplements (Glucerna 18:00 Date of Service: Apr 30, 2025 Billing Provider: MICHELLE KASPER MD Common Visit Codes: NOT BILLABLE DANIELLE PARKER Apr 30, 2025 15:34 MICHELLE KASPER MD Apr 30, 2025 18:18
[2025-04-30 17:00] VITALS: BP 111/68; PULSE 96; RESP 16; TEMP 97; O2SAT 100
[2025-04-30] MEDS: Glucerna Carbsteady SHAKE Vanilla 8oz PO SCH (18:22)
[2025-04-30 20:00] VITALS: PULSE 81; RESP 17; O2SAT 97
[2025-04-30 21:00] VITALS: BP 110/57; PULSE 81; RESP 17; TEMP 98.5; O2SAT 97
[2025-05-01] VITALS (8 sets, daily range): BP systolic 93–143; BP diastolic 55–71; PULSE 66–90; RESP 17–19; TEMP 97.9–98.4; O2SAT 94–97
--- NOTE | 2025-05-01 00:59 | DVHSR ---
APPROVED REPORT EXAM: Two-dimensional and M-mode echocardiogram with Doppler and color Doppler. Blood Pressure: 124/80 mmHg INDICATION chf RISK FACTORS Height: 4'6, Weight: 89 DIMENSIONS LVDd4.9 (3.8-5.7cm)LA (2D)4.0 (1.9-4.0cm)Aortic Root2.6 (2.0-3.7cm) LVDs3.6 (2.5-4.0cm)LA (MM) (1.9-4.0cm)Aortic Cusp Exc1.6 (1.5-2.0cm) EF (%) 45.0 (55-70%)Rt. Atrium3.0 (1.9-4.0cm)Asc. Aorta3.1 cm IVSd0.9 (0.7-1.1cm)RV (D)3.5 (1.8-2.4cm) PWd0.8 (0.7-1.1cm) Mitral Valve MitralMitral Stenosis E wave1.12m/sMV Mean GR.2mmHg A wavem/sMV Peak GR.135mmHg E/A ratio0.02D MVAcm2 DECEL [id number] 1/2 [place] Aortic Valve Aortic ValveAortic Stenosis V10.87m/Carie Mean GR.3mmHg V21.15m/Carie Peak GR.5mmHg LVOT Diameter1.9 (1.8-2.4cm)Doppler AVA2.14cm2 Pulmonic Valve V20.73m/s Tricuspid Valve TR Velocity2.57m/s [id number] Conclusion MAJOR LV SYSTOLIC DYSFUNCTION LV EF IS ONLY 20% LV GLOBAL HYPOKINESIS MODERATELY DILATED RV MODERATELY DILATED LA AND RA MODERATELY SEVERE MR GROSSLY NORMAL VALVES NO EFFUSION MILD PULMONARY HYPERTENSION
[2025-05-01] MEDS: PANTOPRAZOLE 40 MG TAB PO SCH (05:53)
[2025-05-01] MEDS: cefTRIAXone 1GM/50ML D5W 50 ML IV SCH (06:01)
[2025-05-01 07:05] LABS: Hematocrit 40.3 % (36.0-46.0); Hemoglobin 13.1 g/dL (12.2-16.2); Mean Corpuscular Hemoglobin 28.0 pg (28.0-32.0); Mean Corpuscular Volume 85.9 fL (80.0-100.0)
[2025-05-01 07:10] LABS: Alanine Aminotransferase 33 U/L (7-40); Albumin 3.9 g/dL (3.2-4.8); Anion Gap 10 (5-15); BUN/Creatinine Ratio 26.9 (10.0-20.0); Calcium 10.1 mg/dL (8.7-10.4); Carbon Dioxide 25 mmol/L (20-31); Chloride 102 mmol/L (98-107); Glucose 84 mg/dL (74-106); Potassium 4.1 mmol/L (3.5-5.1); Sodium 137 mmol/L (136-145); Total Protein 6.5 g/dL (5.7-8.2)
[2025-05-01 07:11] LABS: Bilirubin, Total 0.3 mg/dL (0.2-1.0)
[2025-05-01 07:12] LABS: Alkaline Phosphatase 169 U/L (46-116); Blood Urea Nitrogen 25 mg/dL (9-23)
[2025-05-01 08:08] LABS: Nucleated Red Blood Cells % 1.0 %; Total Cells Counted 100.0 (100)
[2025-05-01] MEDS ORDERED: NITR50CA52 PO (11:31)
--- NOTE | 2025-05-01 14:23 | ECG ---
[facility] Test Date: 2025-04-29 Test Time: 22:38:07 Pat Name: SAMUEL PRICE Department: ED Room: [facility] A Gender: F Policy Specialist: ELISA : 1950 Requested By: FAWAD DARLING Order Number: [id number] Reading MD: Harlan Mcmullen Measurements Intervals [place] Rate: 113 P: 0 MT: 0 QRS: 68 QRSD: 72 T: 87 QT: 391 QTc: 537 Interpretive Statements Atrial fibrillation Nonspecific T abnormalities, lateral leads Prolonged QT interval Electronically Signed On 05-06-2025 22:01:29 PDT by Harlan Mcmullen Please click the below link to view image of tracing.
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
[2025-05-02] VITALS (8 sets, daily range): BP systolic 108–144; BP diastolic 55–71; PULSE 79–89; RESP 14–18; TEMP 97.8–99.3; O2SAT 96–100
[2025-05-02 08:10] LABS: Hematocrit 43.1 % (36.0-46.0); Hemoglobin 14.2 g/dL (12.2-16.2); Mean Corpuscular Hemoglobin 28.3 pg (28.0-32.0); Mean Corpuscular Volume 85.7 fL (80.0-100.0)
[2025-05-02 08:18] LABS: Anion Gap 10 (5-15); Carbon Dioxide 25 mmol/L (20-31); Chloride 99 mmol/L (98-107); Potassium 4.6 mmol/L (3.5-5.1)
[2025-05-02 08:25] LABS: BUN/Creatinine Ratio 27.0 (10.0-20.0); Glucose 100 mg/dL (74-106)
[2025-05-02 08:31] LABS: Blood Urea Nitrogen 24 mg/dL (9-23); Calcium 11.2 mg/dL (8.7-10.4); Sodium 134 mmol/L (136-145)
[2025-05-02 09:12] LABS: Nucleated Red Blood Cells % 2.0 %; Smudge Cells 3 /100 WBC; Total Cells Counted 100.0 (100)
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
[2025-05-03] VITALS (8 sets, daily range): BP systolic 97–177; BP diastolic 50–84; PULSE 56–88; RESP 16–98; TEMP 97.8–98.4; O2SAT 93–99
[2025-05-03 07:30] LABS: Hematocrit 38.8 % (36.0-46.0); Hemoglobin 13.3 g/dL (12.2-16.2); Mean Corpuscular Hemoglobin 28.8 pg (28.0-32.0); Mean Corpuscular Volume 83.9 fL (80.0-100.0)
[2025-05-03 07:35] LABS: Anion Gap 9 (5-15); Carbon Dioxide 27 mmol/L (20-31); Chloride 99 mmol/L (98-107); Potassium 3.9 mmol/L (3.5-5.1)
[2025-05-03 07:36] LABS: Sodium 135 mmol/L (136-145)
[2025-05-03 07:41] LABS: BUN/Creatinine Ratio 30.0 (10.0-20.0)
[2025-05-03 07:50] LABS: Blood Urea Nitrogen 30 mg/dL (9-23); Calcium 10.8 mg/dL (8.7-10.4); Glucose 117 mg/dL (74-106)
[2025-05-03 08:16] LABS: Total Cells Counted 100.0 (100)
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
[2025-05-04] VITALS (8 sets, daily range): BP systolic 119–140; BP diastolic 61–74; PULSE 62–91; RESP 15–18; TEMP 97.7–98.6; O2SAT 95–98
[2025-05-04] MEDS: HYDROcodone-ACET 5/325MG TAB PO PRN (10:20)
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
[2025-05-05] VITALS (8 sets, daily range): BP systolic 102–142; BP diastolic 55–71; PULSE 61–93; RESP 16–18; TEMP 97.6–99.2; O2SAT 94–96
[2025-05-05 10:46] LABS: Chloride 99 mmol/L (98-107); Potassium 4.3 mmol/L (3.5-5.1)
[2025-05-05 10:47] LABS: Anion Gap 7 (5-15); Calcium 10.2 mg/dL (8.7-10.4); Carbon Dioxide 25 mmol/L (20-31)
[2025-05-05 10:52] LABS: BUN/Creatinine Ratio 28.2 (10.0-20.0)
[2025-05-05 10:53] LABS: Blood Urea Nitrogen 29 mg/dL (9-23); Glucose 248 mg/dL (74-106); Sodium 131 mmol/L (136-145)
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
[2025-05-05] MEDS: APIXABAN 5 MG TAB PO SCH (21:56)
[2025-05-06] VITALS (7 sets, daily range): BP systolic 92–137; BP diastolic 52–96; PULSE 58–83; RESP 15–18; TEMP 97.9–98.4; O2SAT 96–100
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
== END 2025-05-06 18:14 | disposition home or self-care (01) | DRG 597 ==
LOC: EEVIPCON 22:01 → ER 22:01 → OVERFLOW 04-30 02:54 → WEST WING 04-30 12:03
PROVIDERS: ADMIT Internal Medicine; ATTEND Internal Medicine
PROC: 0HBU3ZX Excision of Left Breast, Percutaneous Approach, Diagnostic (ICD-10-PCS; principal; 2025-04-30)
DX: C50.912 Malignant neoplasm of unspecified site of left female breast (principal); I50.43 Acute on chronic combined systolic (congestive) and diastolic (congestive) heart failure; C79.51 Secondary malignant neoplasm of bone; E87.20 Acidosis, unspecified; N30.00 Acute cystitis without hematuria; E11.9 Type 2 diabetes mellitus without complications; I48.91 Unspecified atrial fibrillation; I11.0 Hypertensive heart disease with heart failure; E78.5 Hyperlipidemia, unspecified; K57.30 Diverticulosis of large intestine without perforation or abscess without bleeding; Z88.0 Allergy status to penicillin; Z79.01 Long term (current) use of anticoagulants; Z79.899 Other long term (current) drug therapy
CPT/HCPCS: 10005; 36415; 71045; 74176; 76942; 80048; 80053; 81001; 82306; 82378; 82607; 82746; 82962; 83036; 83605; 83880; 84443; 84484; 85007; 85025; 85027; 87081; 87086; 93005; 93306; G0378